=== PATIENT | male | born 1965 | race Caucasian/White ===

== ENCOUNTER → 2021-01-19 | Day surgery (SDC) | payer OTHER ==
[2021-01-19 07:47] LABS: HCT 45.2 % (42.0-52.0); HGB 15.8 g/dl (13.2-18.0); MCH 32.2 pg (25.0-31.0); MCV 92.2 fL (78.0-100.0); MPV 9.6 fL (6.0-9.5); RBC 4.9 M/uL (4.70-6.00); RDW 11.8 % (11.5-14.0); WBC 4.7 K/uL (4.0-10.5)
[2021-01-19 08:36] LABS: ALBUMIN 4.2 g/dL (3.4-5.0); BILIRUBIN - TOTAL 0.9 mg/dL (0.2-1.0); BUN/CREAT RATIO (CALC) 13.8 RATIO; CREATININE 0.8 mg/dL (0.67-1.17); GLOBULIN (CALCULATION) 3.6 g/dL; POTASSIUM 4.5 mmol/L (3.5-5.1); TOTAL PROTEIN 7.8 g/dL (6.4-8.2)
== END | disposition home or self-care (01) ==
LOC: FAS 07:07
PROVIDERS: Surgery
DX: Z12.11 Encounter for screening for malignant neoplasm of colon (principal); Z87.891 Personal history of nicotine dependence
CPT/HCPCS: 36415; 80053; J2704; J7120